=== PATIENT | female | born 2000 | race Caucasian/White ===

== ENCOUNTER 2020-06-20 14:37 | Emergency (ER) | payer SELFPAY ==
[2020-06-20 14:37] VITALS: BP 148/79; PULSE 89; RESP 16; TEMP 36.7; O2SAT 97; BMI 20.3
--- NOTE | 2020-06-20 14:40 | NURSING ---
NO OLD EKGS
--- NOTE | 2020-06-20 14:54 | EKG12_ITS ---
Test Reason : CP Blood Pressure : / mmHG Vent. Rate : 081 BPM Atrial Rate : 081 BPM P-R Int : 136 ms QRS Dur : 080 ms QT Int : 370 ms P-R-T Axes : 053 -21 050 degrees QTc Int : 429 ms Normal sinus rhythm Normal ECG Confirmed by YOSHI MCGEE, RUMA ([id number]), publication editor RADHA FULTON ([id number]) on 06/24/2020 9:03:47 AM Referred By: DEBBIE Confirmed By:RUMA BELLE MD
--- NOTE | 2020-06-20 14:54 | ED.DCSUM_ITS ---
- ER Visit Summary Date of Service: 06/20/20 Chief Complaint: Chest pain History of Present Illness: The patient is a 19 F who presents with chest pain that began 2 days ago. Patient states it began rather suddenly. Patient describes it as a constant dull pain but is sharp at times. Patient states that it is worse with any exertion or movement. Patient states it is over the left side of her chest. Patient does admit to some shortness of breath and lightheadedness with this. Patient also admits to some palpitations. Patient denies any nausea or vomiting. Patient denies any diaphoresis. Patient denies any fevers or chills. Patient denies any cough. Physical Examination: Vital signs are stable. Patient is afebrile. Patient is in no acute distress. Oral mucosa is pink and moist. Neck is supple. Trachea is midline. There is no JVD noted. Heart was regular rate and rhythm. Lungs are clear and equal bilaterally. Abdomen is soft. Bowel sounds are normal. There is no tenderness. There is no rebound or guarding noted. Skin is warm dry. Cranial nerves II through XII are intact. There are no focal motor or sensory deficits noted. Extremities are intact. There is no calf tenderness or edema. Test Results: EKG was obtained. On my interpretation, there is normal sinus rhythm with a rate of 81. There are no acute ST or T wave changes. Portable 1 view chest x-ray was obtained. On my interpretation, lung henao are clear. There is normal cardiac silhouette. Bony thorax is normal. There is no acute process noted. Radiologist also interpreted the x-ray and agrees. CBC, basic metabolic profile, and troponin were obtained and were all within normal limits. Emergency Department Course and Treatment: Patient was ordered aspirin but refused this. Patient has a HEART score of 1. Patient was advised that this is low risk for acute cardiac event. Patient was instructed to follow-up with her primary care physician in 5 to 7 days. Patient was instructed return if worse in any way. Patient understood and was agreeable with the plan. All questions were answered. Disposition: Discharge home Impression: Chest pain of uncertain etiology This note was generated with [email or web address] software. It may contain incorrect words, spelling, and punctuation that were not noted in review of the chart prior to signing ED Disposition - Plan for ED Patient: Disposition: Home or Assisted Living Diagnosis: Chest pain of uncertain etiology Instructions: ED Chest Pain, Uncertain Cause Referrals: Lisa Yang [NON-STAFF] - 5-7 Days
--- NOTE | 2020-06-20 15:00 | RAD_ITS ---
STUDY: X-RAY CHEST REASON FOR EXAM: Female, 19 years old. CHEST PAIN, INTERMITTENT OVER LAST 2 DAYS, SHARP. WORSE WITH EXERTION AND MOVEMENT. DENIES RADIATION. STATES HAD SYNCOPAL EPISODE WITHIN LAST 2 DAYS. TECHNIQUE: Single AP portable view of the chest. COMPARISON: None. FINDINGS: The lungs are clear and expanded. There is no demonstrated pleural abnormality. Normal size heart. Normal mediastinum and zuleyma. Normal visualized pulmonary arteries. Normal visualized aortic arch and descending thoracic aorta. Normal visualized thoracic spine. Normal visualized ribs, clavicles, and shoulders. There is no demonstrated abnormality of the visualized soft tissue structures of the upper abdomen. RAD/Chest 1 View (Portable) IMPRESSION: Normal x-ray examination of the chest. Electronically Signed: Kenyon De Leon MD at 15:31 EST Tel , Service support ,
--- NOTE | 2020-06-20 15:00 | ED.RN ---
WENT IN TO START IV, PT STATES SHE DOESN'T THINK SHE WANTS AN IV OR BLOOD WORK. MADE AWARE.
[2020-06-20 15:02] VITALS: O2SAT 100
[2020-06-20 15:59] LABS: Absolute Lymphocyte Count 2.01 X10^3/uL (0.83-4.51); Absolute Neutrophil Count 2.9 X10^3/uL (2.0-7.7); Basophil# 0.04 X10^3/uL; Basophil% 0.7 % (0-1); Eosinophil# 0.04 X10^3/uL; Eosinophils% 0.7 % (0-5); Hematocrit 40.4 % (37-47); Hemoglobin 13.2 g/dL (12.0-15.0); Lymphocyte # 2.01 X10^3/ul (4.0); Lymphocyte % 36.1 % (19-41); Mean Corp Hgb Conc 32.7 g/dL (32-36); Mean Corpuscular Hgb 28.9 pg (27.0-32.0); Mean Corpuscular Volume 88.6 fL (81-99); Mean Platelet Vol. 9.5 fl (6.2-12.0); Monocyte# 0.54 X10^3/uL; Monocyte% 9.7 % (0-10); NRBC Flagged by Analyzer 0 % (0-5); Neutrophil # 2.92 X10^3/uL (2.7-7.7); Neutrophil % 52.4 % (47-70); Platelet Count 363 K/mm3 (150-450); RBC Distribution Width CV 12.6 % (11.6-14.6); RBC Distribution Width SD 41.3 fl (35.1-43.9); Red Blood Count 4.56 M/mm3 (4.2-5.4); White Blood Count 5.6 K/mm3 (4.4-11.0)
[2020-06-20 16:09] LABS: Anion Gap 5 (5-15); BUN 9 mg/dL (7-18); BUN/Creat Ratio 15.2 RATIO (10-20); Calcium,Total 9.3 mg/dL (8.5-10.1); Chloride 108 mmol/L (98-107); Creatinine, Serum 0.59 mg/dL (0.55-1.02); EST Glomerular Filtration Rate 136 mL/min (>60); Est Glom Filt Rate - Afr Amer 165 mL/min (>60); Estimated Creatinine Clearance 125.25 ml/min; Glucose 79 mg/dL (74-106); Sodium Level 140 mmol/L (136-145)
--- NOTE | 2020-06-20 16:16 | CM.ED ---
Social Work Consult: Private Pay Informant: Dr. Sanchez Met with patient in room. Introduced self and social work program coordinator role. Patient agreeable to speak with this social work program coordinator. Patient reports to have applied for Medicaid but to no qualify. 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 Patient speaking with registration and plans to pay upfront to receive a 25% discount on patient bill. Patient reports no concerns in the community. Patient aware of the market place and how to purchase own insurance. Patient reports to have transportation to home. Gt WHYTE, LAUREN
== END 2020-06-20 16:27 | disposition home or self-care (01) ==
PROVIDERS: Emergency Provider Emergency Medicine
DX: R07.9 Chest pain, unspecified (principal); R06.00 Dyspnea, unspecified; R06.02 Shortness of breath; R42 Dizziness and giddiness; R00.2 Palpitations; M54.5 Low back pain; M54.2 Cervicalgia; G89.29 Other chronic pain
CPT/HCPCS: 71045; 80048; 84484; 85025; 93005; 99284; A4216

== ENCOUNTER 2024-06-13 19:23 | Emergency (ER) | payer SELFPAY ==
[2024-06-13 19:23] VITALS: BP 131/78; PULSE 104; RESP 16; TEMP 36.6; O2SAT 99; BMI 21.6
[2024-06-13 19:33] VITALS: O2SAT 98
--- NOTE | 2024-06-13 19:40 | EKG12_ITS ---
Test Reason : CP Blood Pressure : */* mmHG Vent. Rate : 88 BPM Atrial Rate : 88 BPM P-R Int : 136 ms QRS Dur : 80 ms QT Int : 350 ms P-R-T Axes : 72 3 57 degrees QTcB Int : 423 ms Normal sinus rhythm Normal ECG Confirmed by YOSHI MCGEE, RUMA ([id number]), brands editor RADHA FULTON ([id number]) on 06/15/2024 2:17:45 PM Referred By: Ramana Coy Confirmed By: RUMA BELLE MD
--- NOTE | 2024-06-13 19:45 | ED.VIS.CHEST ---
HPI History of Present Illness Chief Complaint: Chest Pain Informant: patient Onset/Context/Timing Onset: Days Activity at onset: gradual Timing: Continuous Quality: Positive for Aching Location: Substernal Current Severity: Mild Maximum Severity: Mild Worsened By: Coughing Relieved By: Nothing Associated Symptoms: Positive for Cough; Negative for Nausea, Vomiting, Diaphoresis, Dyspnea, Fever, Lightheadedness, Acid Reflux or Palpitations Narrative Narrative: 23-year-old female history of PTSD and depression. Has had URI symptoms for 2 weeks. She has got a chronic cough with at times yellowish to greenish sputum. No fever or chills. She developed a hoarse voice. No history of DVT or PE no recent travel surgery mobilization. No leg pain or swelling. Prior Similar Symptoms: No Recent Illness/Hospitalization: No CVD Risk Factors: Negative for Hypertension or Diabetes PE Risk Factors: Negative for Recent Travel/Surgery, Recent Immobilization, Prior DVT or PE, Cancer or OCP + Smoking + >/=35 TAD Risk Factors: Negative for Marfan's Syndrome PFSH PFS Medical History Hx of vaginal delivery Depression Anxiety PTSD (post-traumatic stress disorder) ADHD Home Medications ?Medication ?Instructions ?Recorded ?Last Taken ?Type buspirone 15 mg tablet 15 mg PO TID 06/13/24 Unknown History dextroamphetamine-amphetamine 15 1 tab PO BID 06/13/24 Unknown History mg tablet escitalopram oxalate 20 mg tablet 20 mg PO DAILY 06/13/24 Unknown History Allergy/AdvReac Type Severity Reaction Status Date / Time No Known Allergies Allergy Verified 06/13/24 19:23 Social History Smoking Status: Never smoker ROS ROS ED ROS Narrative URI symptoms with cough. Chest discomfort with coughing. Constitutional Constitutional ED: Denies chills or fever(s) Eyes Eyes: Reports none ENT ENT ED: Reports rhinorrhea; Denies ear pain Cardiovascular Cardiovascular: Reports chest pain Respiratory/Chest Respiratory/Chest: Reports cough and sputum Gastrointestinal Gastrointestinal: Denies abdominal pain Genitourinary Genitourinary ED: Denies dysuria Musculoskeletal Musculoskeletal: Denies arthralgias Integumentary Denies abscess Neurologic Neurologic: Denies headache(s) Psychiatric Psychiatric: Denies anxiety or depression Endocrine Endocrinology: Denies cold intolerance Hematologic/Lymphatic Hematologic/Lymphatic: Denies easy bleeding, easy bruising or lymphadenopathy Allergic/Immunologic Allergic/Immunologic ED: Denies mouth swelling, tongue swelling or urticaria EXAM Physical Exam Narrative Exam Narrative: 23-year-old female no acute distress. Vital signs stable afebrile. Pulse ox 99% on room air no hypoxia. H EENT exam unremarkable. Hoarse voice. Pupils round reactive light. Moist mucous membranes. Posterior pharynx without erythema or exudate. No trouble swallowing or breathing. Neck nontender no lymphadenopathy. Clear to auscultation bilaterally. Dry cough. Heart regular rate and rhythm no murmur. Rate about 90. Chest wall reproducibly tender. No ecchymosis or bruising. No subcu air crepitus. Abdomen soft nontender. Moving all 4 extremities. 5 out of 5 investor relations analyst strength. Equal symmetrical radial pulses. Calves are nontender without edema or cords. Neurologically she is awake alert no focal motor deficits. Exam is consistent with a viral URI. Const Vital Signs: 06/13/24 19:23 06/13/24 19:33 06/13/24 19:33 Temperature 97.9 F Temperature Source Oral Pulse Rate 104 H Respiratory Rate 16 Respiratory Effort Normal Non-Labored Normal Non-Labored Respiratory Depth Normal Respiratory Pattern Normal Blood Pressure 131/78 H Blood Pressure Mean 95 Pulse Ox 99 Oxygen Delivery Method Room Air Room Air Positive well nourished and well developed; Negative for obese, cachectic, contractures or unkempt General Appearance ED: well developed and NAD; Negative for unkempt, cachectic, contractures or pallor Nutritional Appearance: Negative for cachectic or obese HEENT Reports moist mucous membranes normocephalic and atraumatic; Negative for trauma or tenderness Eyes PERRL and EOMs intact bilaterally General Eye ED: Negative for pale conjunctiva or scleral icterus Neck no lymphadenopathy, supple and no JVD Chest Wall inspection of chest normal and palpation of chest normal Chest: Negative for tenderness Resp normal respiratory effort and clear to auscultation bilaterally Resp Narrative: Dry cough. Effort and Inspection: Negative for respiratory distress Auscultation: Negative for rales, rhonchi, wheezes or diminished lung sounds Cardio regular rate, regular rhythm, S1 normal heart sound, S2 normal heart sound and no murmurs Rate: Negative for bradycardia or tachycardic Rhythm: Negative for abnormal rhythm Peripheral Pulses: pulses 2+ throughout GI normal to inspection, nondistended, normoactive bowel sounds, soft to palpation, non-tender, non-distended and no masses Back/Spine no CVA tenderness and no thoracic nor lumbar tenderness General Back: Negative for CVA tenderness Cervical Spine: Negative for cervical spine tenderness Extremity normal to inspection General Extremety ED: Negative for edema, pulses abnormal or tenderness General Extremity: Negative for edema or pulses abnormal Neuro oriented x3 and CN's II-XII intact bilaterally Sensorium / Orientation: awake, alert, oriented to person, oriented to place and oriented to time; Negative for confused, lethargic or stuporous Motor Exam: strength 5/5 throughout Psych mental status grossly normal Appearance: Negative for unkempt Attitude: No agitated Mood & Affect: Negative for depressed, anxious or tearful Skin no rashes or lesions noted and no wounds General Skin Exam: Negative for jaundice, pallor or other Rashes: No rashes noted Trauma: Negative for abrasion or laceration MDM MDM MDM Narrative Medical decision making narrative: 23-year-old female with URI. Think she has reproducible chest pain and probably chest discomfort from her URI. She has had it for 2 weeks there is really no reason to do viral testing which she does not want anyway. EKG is unremarkable. I do not think she needs a cardiac workup. She is never had a DVT or PE and no risk factors. I do not think she needs a workup for PE. Chest x-ray will be obtained to rule out pneumonia. Chest x-ray and EKG were unremarkable. Repeat exam 8:51 PM she is doing well. We went over her test. Fluids and rest. Tylenol Motrin. Follow-up as needed. Return if worse. Treated as a viral syndrome. She was given Motrin for discomfort. History & Record Review Discussion w/independent historian: Patient Radiography Chest X-Ray - ED: 2 View, Read by ED Physician, Heart, Lungs, Mediastinum, Bony Structures, No Acute Disease and Chronic Changes Diagnostic Testing: Chest x-ray, 2 views, interpreted by myself shows no acute abnormality. Normal cardiac silhouette. Normal lung henao. No effusions. No pneumonia. Rhythm Strip Rhythm Strip: Sinus Rhythm Rate: 88 Ectopy: None EKG Initial EKG: Attestation: I personally reviewed and interpreted this EKG as follows: Interpretation: Sinus Rhythm and No Acute Injury Pattern Comments: Normal sinus rhythm rate 88 no acute signs of ID or ischemia. Discharge Plan Triage Chief Complaint: Chest Pain ED Provider: Ramana Coy Dx/Rx/DC Orders Clinical Impression: Viral URI Instructions: ED URI, Viral, No Abx (Adult) Prescriptions: No Action dextroamphetamine-amphetamine 15 mg tablet 1 tab PO BID buspirone 15 mg tablet 15 mg PO TID escitalopram oxalate 20 mg tablet 20 mg PO DAILY Primary Care Provider: Care Physician,No Primary Referrals: Care Physician,No Primary [Primary Care Provider] - Activity Restrictions/Additional Instructions: Plenty of fluids and rest. Alternate Tylenol and Motrin for pain. Follow-up if not proving or return if worse. Your EKG and chest x-ray were both normal. No pneumonia. Print Language: Albanian Disposition Disposition: Home, Self Care
--- NOTE | 2024-06-13 20:00 | RAD_ITS ---
STUDY: X-RAY CHEST REASON FOR EXAM: Female, 23 years old. Cough TECHNIQUE: PA and lateral views of the chest. COMPARISON: None. FINDINGS: The lungs are clear and expanded. There is no demonstrated pleural abnormality. Normal size heart. Normal mediastinum and zuleyma. Normal visualized pulmonary arteries. Normal visualized aortic arch and descending thoracic aorta. Normal visualized thoracic spine. Normal visualized ribs, clavicles, and shoulders. There is no demonstrated abnormality of the visualized soft tissue structures of the upper abdomen. RAD/Chest PA and Lateral IMPRESSION: Normal x-ray examination of the chest. Electronically Signed: Marc Romero MD at 22:32 EST ,
[2024-06-13 20:55] VITALS: BP 96/76; PULSE 96; RESP 18; TEMP 36.7; O2SAT 98
== END 2024-06-13 21:11 | disposition home or self-care (01) ==
PROVIDERS: Emergency Provider Emergency Medicine; Referring Provider Emergency Medicine; Visit Provider Emergency Medicine
DX: J06.9 Acute upper respiratory infection, unspecified (principal); F43.10 Post-traumatic stress disorder, unspecified; F32.A Depression, unspecified; F90.9 Attention-deficit hyperactivity disorder, unspecified type; F41.9 Anxiety disorder, unspecified; Z79.899 Other long term (current) drug therapy
CPT/HCPCS: 71046; 93005; 99283